=== PATIENT | female | born 1970 | race Caucasian/White ===

== ENCOUNTER 2024-04-14 08:11 | Day surgery (SDC) | payer BC ==
[2024-04-06 15:04] LABS: BASOPHILS % (AUTO) 0.7 % (0-1); EOSINOPHILS # (AUTO) 0.3 X10'3 (0-0.9); LYMPHOCYTES # (AUTO) 1.6 X10'3 (1.1-4.8); LYMPHOCYTES % (AUTO) 22.1 % (21-51); MEAN CORPUSCULAR HEMOGLOBIN 22.4 PG (27.0-31.0); MEAN CORPUSCULAR HGB CONC 31.6 g/dL (33.0-36.5); MEAN CORPUSCULAR VOLUME 70.9 FL (78-98); MEAN PLATELET VOLUME 8.6 FL (7.4-10.4); MONOCYTES # (AUTO) 0.7 X10'3 (0-0.9); NEUTROPHILS # (AUTO) 4.6 X10'3 (1.8-7.7); NEUTROPHILS % (AUTO) 63.2 % (42-75); PRE OP HEMATOCRIT 36.7 % (35.0-45.0); PRE OP HEMOGLOBIN 11.6 g/dL (12.0-16.0); PRE OP PLATELET COUNT 327 X10'3 (140-440); PRE OP WHITE BLOOD COUNT 7.3 10'3 (4.8-10.8); RED BLOOD COUNT 5.18 X10'6 (4.20-5.60); RED CELL DISTRIBUTION WIDTH 22.1 % (11.5-14.5)
[2024-04-06 15:20] LABS: ANISOCYTOSIS 3+; MICROCYTOSIS 1+; PLATELET ESTIMATE NORMAL; PRE OP PROTIME 10.1 SECONDS (9.0-12.0)
[2024-04-06 15:21] LABS: LARGE PLATELETS FEW
[2024-04-06 15:22] LABS: TEAR DROP CELLS FEW
[2024-04-06 15:28] LABS: ALBUMIN 3.4 G/DL (3.4-5.0); ALBUMIN/GLOBULIN RATIO 0.8 (1.1-1.5); ALKALINE PHOSPHATASE 110 IU/L (46-116); BLOOD UREA NITROGEN 17 MG/DL (7-18); BUN/CREATININE RATIO 13.6 (10.0-20.0); CALCIUM 8.9 MG/DL (8.5-10.1); CHLORIDE 104 MMOL/L (99-107); CREATININE 1.25 MG/DL (0.40-0.90); PRE OP ALT 19 U/L (30-65); PRE OP ANION GAP 9 (8-16); PRE OP AST 16 U/L (10-37); PRE OP BILIRUB, TOTAL 0.5 MG/DL (0.0-1.0); PRE OP GLUCOSE 163 MG/DL (70-104); PRE OP POTASSIUM 3.8 MMOL/L (3.4-5.1); PRE OP SODIUM 140 MMOL/L (135-145); TOTAL PROTEIN 7.6 G/DL (6.4-8.2); eGFR 45 ML/MIN
[2024-04-14] VITALS (9 sets, daily range): BP systolic 85–131; BP diastolic 44–71; PULSE 86–95; RESP 12–16; TEMP 99.4; O2SAT 88–96
[~2024-04-14] VITALS: Ht 160 cm; Wt 133.1 kg
[2024-04-14] MEDS: Cefazolin 3 GM/100ML NS IVPB 100 ML IV ONE (05:30)
[~2024-04-14 08:11] MED LIST: ATOR10TA70 PO; FLUO-331 PO; INSU100I8 SQ; LANTUS SQ; LOSA1TAB41 PO; OMEP40CA21 PO; VENL75TA4 PO
[2024-04-14] MEDS: famotidine 20mg tablet PO ONE (09:35)
[2024-04-14] MEDS: ringers solution, lacted 1,000 ML IV SCH (09:36)
[2024-04-14] MEDS ORDERED: methylene blue (5mg/ml) 50mg/10ml ampul IV ONE (10:36)
[2024-04-14] MEDS ORDERED: BUPIVACAINE liposomal/PF 13.3 MG/ML vial IM ONE (10:36)
[2024-04-14] MEDS ORDERED: BUPIVAcaine 2.5mg/ml inj 50ml vial (contains preservative) ONE (10:36)
[2024-04-14] MEDS ORDERED: LIDOcaine 1% (10mg/ml)w/preservative inj. 20ml MDV ONE (10:36)
[2024-04-14] MEDS ORDERED: ringers solution, lacted 1,000 ML IV SCH (10:40)
[2024-04-14] MEDS ORDERED: ondansetron/PF 4mg/2ml inj IV PRN (10:40)
[2024-04-14] MEDS ORDERED: morphine 2 MG/ML inj. syringe IV PRN (10:40)
[2024-04-14] MEDS ORDERED: morphine 4 MG/ML inj SYRINge IV PRN (10:40)
[2024-04-14] MEDS ORDERED: meperidine/PF 25mg/ml syringe IV PRN ×3 (10:40)
[2024-04-14] MEDS ORDERED: labetalol 20mg/4ml (5mg/ml) syringe IV PRN (10:40)
[2024-04-14] MEDS ORDERED: enalaprilat dihydrate 2.5mg/2ml vial IV PRN (10:40)
[2024-04-14] MEDS ORDERED: proCHLORperazine 10 MG/2 ml inj IV PRN (10:40)
[2024-04-14] MEDS ORDERED: sevoflurane 250ml liquid IH ONE (12:15)
[2024-04-14] MEDS ORDERED: midazolam 1 mg/ML 2ml injection ONE (12:24)
[2024-04-14] MEDS ORDERED: fentaNYL /PF 50mcg/ml 5ml ampule ONE (12:25)
[2024-04-14] MEDS ORDERED: propofol inj 20 ML IV ONE (12:35)
[2024-04-14] MEDS ORDERED: acetaminophen 1,000mg/100ml IV 100 ML IV ONE (12:45)
[2024-04-14] MEDS ORDERED: albumin (Human) 5% 250ml 250 ML IV ONE (13:46)
[2024-04-14] MEDS ORDERED: ondansetron/PF 4mg/2ml inj ONE (13:57)
== END 2024-04-14 15:20 | disposition home or self-care (01) ==
LOC: PAS 08:11
PROVIDERS: ATTEND Surgery
DX: C50.411 Malignant neoplasm of upper-outer quadrant of right female breast (principal); I10 Essential (primary) hypertension; E11.9 Type 2 diabetes mellitus without complications; E66.9 Obesity, unspecified; E78.5 Hyperlipidemia, unspecified; G47.33 Obstructive sleep apnea (adult) (pediatric); F41.9 Anxiety disorder, unspecified; F32.A Depression, unspecified; K21.9 Gastro-esophageal reflux disease without esophagitis; I25.2 Old myocardial infarction; M19.90 Unspecified osteoarthritis, unspecified site; Z79.899 Other long term (current) drug therapy; Z98.818 Other dental procedure status; Z98.891 History of uterine scar from previous surgery; Z98.890 Other specified postprocedural states; Z68.43 Body mass index [BMI] 50.0-59.9, adult; Z88.0 Allergy status to penicillin; Z88.1 Allergy status to other antibiotic agents; Z88.5 Allergy status to narcotic agent; Z88.8 Allergy status to other drugs, medicaments and biological substances
CPT/HCPCS: 19301; 38525; 38900; 76098; 80053; 82948; 85025; 85610; 85730; 93005; C9290; J0131; J0690; J1100; J2250; J2405; J2704; J3010; J3490; J7030; J7120; P9045; Q9968; Z7506; Z7508; Z7512; 85008; A4215; A4618; A6258; A7000